=== PATIENT | male | born 1940 | race Caucasian/White ===

== ENCOUNTER 2017-10-21 19:56 | Emergency (ER) | payer OTHER, BC ==
[~2017-10-21] VITALS: Ht 180.3 cm; Wt 88.5 kg
[~2017-10-21 19:56] MED LIST: AMARYL2 M1 PO; APAP500 PO; ATORVASTATIN CA40 MG PO; BENICAR20 MG PO; COQ-10100 MG PO; DIOVAN 80 MG TA80 M1 PO; GLUCOPHAGE XR500 MG PO; GLUCOPHAGE1000 MG PO; IRON325 PO; PERCOCET 5-3251 EACH PO; PRILOSEC20 MG PO; VENOFER100 MG/51 IV; VITAMINC500 PO
== END 2017-10-21 23:27 ==
LOC: ER 19:56
DX: I46.9 Cardiac arrest, cause unspecified (principal); E78.5 Hyperlipidemia, unspecified; E11.9 Type 2 diabetes mellitus without complications; Z91.041 Radiographic dye allergy status; Z88.6 Allergy status to analgesic agent